=== PATIENT | female | born 1935 | race Caucasian/White ===

== ENCOUNTER 2018-06-07 00:41 | Emergency (ER) | payer OTHER ==
[~2018-06-07] VITALS: Ht 162.6 cm; Wt 56.8 kg
[~2018-06-07 00:41] MED LIST: AMOXICILLIN/CL875 MG OR; BLOOD PRESSURE PO; CIPROFLOXACN500 MG PO; LIPITOR10 MG PO; MEDDOSEPAK PO; PROAIR HFA IN
[2018-06-07 02:03] LABS: HEMATOCRIT 30.4 % (37.0-47.0); HEMOGLOBIN 10.3 g/dl (12.0-16.0); IMMATURE GRANULOCYTES 4.2 % (0.0-5.0); MEAN CORPUSCULAR HGB 30.8 pG CALC (26.0-32.0); MEAN CORPUSCULAR HGB CONC 33.9 g/L CALC (32.0-36.0); NEUT# 23.92 thou/uL (2.00-7.15); RED BLOOD COUNT 3.34 mill/uL (4.20-5.60); RED CELL DISTRI WIDTH 14.3 % (11.5-15.5)
[2018-06-07 02:18] LABS: ALBUMIN 4.1 g/dL (3.2-5.0); ALKALINE PHOSPHATASE 54 u/l (38-126); AMYLASE 36 u/l (30-110); ANION GAP 19 (6-22 (CALC)); BILIRUBIN, TOTAL 0.5 mg/dL (0.0-1.4); BUN 65 mg/dL (8-23); BUN/CREATININE RATIO 62 (12-20 (CALC)); CARBON DIOXIDE 29 mmol/l (22-30); CHLORIDE 87 mmol/l (95-108); GFR 53 ML/MIN (>=60 (CALC)); GFR FOR AFR.AMER. > 60 ML/MIN (>=60 (CALC)); LIPASE 117 u/l (23-300); POTASSIUM 3.1 mmol/l (3.5-5.1); SGOT/AST 23 u/l (9-36); SODIUM 132 mmol/l (137-146); TOTAL PROTEIN 6.7 g/dL (6.3-8.2)
[2018-06-07 02:27] LABS: PROTHROMBIN TIME 10.6 SECONDS (9.0-12.5)
[2018-06-07 02:30] LABS: MYOGLOBIN 71 ng/mL (0 - 62)
[2018-06-07 03:30] VITALS: BP 111/72
== END 2018-06-07 04:00 | disposition short-term general hospital (02) | DRG 379 ==
LOC: ED 00:41
PROVIDERS: Emergency Medicine
DX: K92.2 Gastrointestinal hemorrhage, unspecified (principal); E87.6 Hypokalemia; D72.829 Elevated white blood cell count, unspecified; R10.13 Epigastric pain; R10.33 Periumbilical pain; I10 Essential (primary) hypertension; F17.210 Nicotine dependence, cigarettes, uncomplicated
CPT/HCPCS: S0164